=== PATIENT | female | born 1965 | race African-American/Black ===

== ENCOUNTER 2021-03-21 09:04 | Emergency (ER) | payer OTHER ==
[~2021-03-21] VITALS: Ht 167.6 cm; Wt 110.2 kg
[~2021-03-21 09:04] MED LIST: ANTIVERT25 MG PO; CARAFATE1 GM PO; HCTZ12.5 MG PO; LOPRESSOR25 MG PO; NORCO 7.5-3251 EACH PO; PROTONIX 40MG T40 MG PO; ZOFRAN4 MG PO; magnesium
[2021-03-21 09:43] LABS: BILIRUBIN NEGATIVE (NEGATIVE); BLOOD 3+ Ery/uL (NEGATIVE); CLARITY CLEAR (CLEAR); COLOR YELLOW (YELLOW); GLUCOSE (U) NORMAL (NORMAL); LEUKOCYTES NEGATIVE Leu/uL (NEGATIVE); NITRITE NEGATIVE (NEGATIVE); PROTEIN 1+ mg/dL (NEGATIVE); SPECIFIC GRAVITY 1.025 (1.001-1.030); UROBILINOGEN 0.2 mg/dL (0.2-1.0)
[2021-03-21 09:56] LABS: URINARY RBC 20-50; URINARY WBC RARE
[2021-03-21 09:57] LABS: BACTERIA 1+
[2021-03-21 10:08] LABS: BASOPHIL 0.1 % (0-2); EOSINOPHIL 0.9 % (0-5); HCT 36.8 % (37.0-47.0); HGB 11.8 g/dl (12.5-16.0); LYMPHOCYTE 19.8 % (15-48); MCHC 32.1 g/dL (32.0-36.0); MCV 90.4 fL (78.0-100.0); MONOCYTE 3.6 % (0-12); MPV 11.5 fL (6.0-9.5); NEUTROPHIL 75.3 % (41-80); NRBC 0; PLT 196 K/uL (150-400); RBC 4.07 M/uL (4.20-5.40); RDW 13.7 % (11.5-14.0); WBC 6.7 K/uL (4.0-10.5)
[2021-03-21 10:24] LABS: ALBUMIN 3.4 g/dL (3.4-5.0); BILIRUBIN - TOTAL 0.3 mg/dL (0.2-1.0); CREATININE 0.8 mg/dL (0.51-0.95); GLOBULIN (CALCULATION) 3.6 g/dL; POTASSIUM 3.8 mmol/L (3.5-5.1)
[2021-03-21] MEDS ORDERED: OXYCODONE-ACET1 EACH PO (11:23)
[2021-03-21] MEDS ORDERED: ONDANSETRON ODT4 MG PO (11:23)
== END 2021-03-21 11:35 | disposition home or self-care (01) ==
LOC: FER 09:04
PROVIDERS: Internal Medicine
DX: N13.2 Hydronephrosis with renal and ureteral calculous obstruction (principal); Q61.3 Polycystic kidney, unspecified; D64.9 Anemia, unspecified; I10 Essential (primary) hypertension
CPT/HCPCS: 36415; 80053; 81001; 84145; 84484; 85025; 93005; J1170; J2405; J7120

== ENCOUNTER 2022-01-08 05:11 | Emergency (ER) | payer OTHER ==
[~2022-01-08 05:11] MED LIST changes: +ONDANSETRON ODT4 MG PO; +OXYCODONE-ACET1 EACH PO
[2022-01-08 05:48] LABS: BASOPHIL 0.4 % (0-2); EOSINOPHIL 0.7 % (0-5); HCT 43.7 % (37.0-47.0); HGB 14.1 g/dl (12.5-16.0); LYMPHOCYTE 21.6 % (15-48); MCH 28.9 pg (25.0-31.0); MCHC 32.3 g/dL (32.0-36.0); MCV 89.5 fL (78.0-100.0); MONOCYTE 4.6 % (0-12); MPV 13.5 fL (6.0-9.5); NEUTROPHIL 72.4 % (41-80); NRBC 0; PLT 196 K/uL (150-400); RBC 4.88 M/uL (4.20-5.40); RDW 13.4 % (11.5-14.0); WBC 6.7 K/uL (4.0-10.5)
[2022-01-08 06:13] LABS: ALBUMIN 3.8 g/dL (3.4-5.0); BILIRUBIN - TOTAL 0.5 mg/dL (0.2-1.0); BUN/CREAT RATIO (CALC) 24.7 RATIO; CREATININE 0.93 mg/dL (0.51-0.95); GLOBULIN (CALCULATION) 4.5 g/dL; POTASSIUM 4.6 mmol/L (3.5-5.1); TOTAL PROTEIN 8.3 g/dL (6.4-8.2)
[2022-01-08 07:12] LABS: BILIRUBIN NEGATIVE (NEGATIVE); BLOOD TRACE-INTACT Ery/uL (NEGATIVE); CLARITY CLEAR (CLEAR); COLOR YELLOW (YELLOW); GLUCOSE (U) 3+ mg/dL (NORMAL); LEUKOCYTES NEGATIVE Leu/uL (NEGATIVE); NITRITE NEGATIVE (NEGATIVE); PROTEIN NEGATIVE (NEGATIVE); SPECIFIC GRAVITY <=1.005 (1.001-1.030); UROBILINOGEN 0.2 mg/dL (0.2-1.0)
[2022-01-08 07:24] LABS: BACTERIA TRACE; URINARY WBC RARE
[2022-01-08 09:35] LABS: BUN/CREAT RATIO (CALC) 25.9 RATIO; CREATININE 0.81 mg/dL (0.51-0.95); POTASSIUM 4.5 mmol/L (3.5-5.1)
[2022-01-08] MEDS ORDERED: METFORMIN HCL500 M3 PO (13:07)
== END 2022-01-08 13:21 | disposition home or self-care (01) ==
LOC: FER 05:11
PROVIDERS: Emergency Medicine
DX: E11.65 Type 2 diabetes mellitus with hyperglycemia (principal); I10 Essential (primary) hypertension; Z20.822 Contact with and (suspected) exposure to COVID-19; Z79.84 Long term (current) use of oral hypoglycemic drugs; Z79.899 Other long term (current) drug therapy
CPT/HCPCS: 36415; 80048; 80053; 81001; 83036; 84145; 84484; 85025; 93005; 96372; J7030; U0002

== ENCOUNTER 2022-02-16 10:41 | Emergency (ER) | payer OTHER ==
[~2022-02-16 10:41] MED LIST changes: +METFORMIN HCL500 M3 PO
[2022-02-16 11:20] LABS: BASOPHIL 0.5 % (0-2); EOSINOPHIL 0.7 % (0-5); HCT 38.2 % (37.0-47.0); HGB 12.2 g/dl (12.5-16.0); LYMPHOCYTE 22.4 % (15-48); MCH 28.9 pg (25.0-31.0); MCHC 31.9 g/dL (32.0-36.0); MCV 90.5 fL (78.0-100.0); MONOCYTE 4.5 % (0-12); MPV 10.7 fL (6.0-9.5); NEUTROPHIL 71.7 % (41-80); NRBC 0; PLT 282 K/uL (150-400); RBC 4.22 M/uL (4.20-5.40); RDW 13.4 % (11.5-14.0)
[2022-02-16 11:43] LABS: BILIRUBIN NEGATIVE (NEGATIVE); BLOOD 3+ Ery/uL (NEGATIVE); CLARITY HAZY (CLEAR); COLOR YELLOW (YELLOW); GLUCOSE (U) NORMAL (NORMAL); LEUKOCYTES NEGATIVE Leu/uL (NEGATIVE); NITRITE NEGATIVE (NEGATIVE); PROTEIN TRACE (LOW) mg/dL (NEGATIVE); SPECIFIC GRAVITY >=1.030 (1.001-1.030); UROBILINOGEN 0.2 mg/dL (0.2-1.0); pH 5.5 (5.0-9.0)
[2022-02-16 12:24] LABS: ALBUMIN 3.8 g/dL (3.4-5.0); BILIRUBIN - TOTAL 0.4 mg/dL (0.2-1.0); BUN/CREAT RATIO (CALC) 21.1 RATIO; CREATININE 0.95 mg/dL (0.51-0.95); GLOBULIN (CALCULATION) 3.8 g/dL; TOTAL PROTEIN 7.6 g/dL (6.4-8.2)
[2022-02-16 12:44] LABS: URINARY WBC RARE
[2022-02-16 12:47] LABS: BACTERIA TRACE; SQUAMOUS EPITHELIAL CELLS RARE
[2022-02-16 12:48] LABS: URIC ACID CRYSTALS MODERATE
[2022-02-16] MEDS ORDERED: FLOMAX0.4 MG PO (13:48)
[2022-02-16] MEDS ORDERED: ONDANSETRON ODT4 MG PO (13:48)
[2022-02-16] MEDS ORDERED: NORCO 5-325 TA1 EACH PO (13:48)
== END 2022-02-16 14:00 | disposition home or self-care (01) ==
LOC: FER 10:41
PROVIDERS: Emergency Medicine
DX: N13.2 Hydronephrosis with renal and ureteral calculous obstruction (principal)
CPT/HCPCS: 36415; 80053; 81001; 85025; J1885